=== PATIENT | male | born 2005 | race Hispanic/Latino ===

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

== ENCOUNTER 2024-09-18 12:03 | Emergency (ER) | payer BC ==
[2024-09-18 13:43] LABS: Urine Bilirubin NEGATIVE (Negative); Urine Blood Negative (Negative); Urine Clarity Clear (Clear); Urine Color Colorless (Yellow); Urine Glucose NEGATIVE (Negative); Urine Ketones NEGATIVE (Negative); Urine Microscopic Reflex YN NO UMIC; Urine Nitrite NEGATIVE (Negative); Urine Protein NEGATIVE (Negative); Urine Urobilinogen Normal (Normal)
[2024-09-18 13:49] LABS: Absolute Eosinophils 0.4 K/uL (0-0.5); Absolute Lymphocytes (CBC) 2.2 K/uL (0.7-4.9); Absolute Monocytes 0.6 K/uL (0.1-1.3); Absolute Neutrophil 4.3 K/uL (1.8-8.0); Basophils % 0.3 % (0-1.3); Hematocrit 47.1 % (39.6-49.0); Hemoglobin 15.7 g/dL (13.6-17.9); Lymphocytes % 29.4 % (15.3-44.8); MCH 27.1 pg (27.0-35.0); MCHC 33.4 g/dL (32.0-36.0); MCV 80.9 fL (80-100); MPV 8.2 fL (7.6-11.3); Monocytes % 8.1 % (3.3-12.3); Neutrophils % 57.2 % (41.7-73.7); Nucleated Red Blood Cells % 0.1 % (0-0); Platelets 302 thou/uL (152-406); RBC Red Blood Cell Count 5.82 M/uL (4.33-5.43); Red Cell Distribution Width 13.3 % (12.1-15.2)
[2024-09-18 13:59] LABS: Anion Gap 7.1 mEq/L (5.0-15.0); Bilirubin Total 0.5 mg/dL (0.2-1.0); Potassium 4.1 mEq/L (3.5-5.1)
--- NOTE | 2024-09-18 14:50 | RAD REPORT ---
EXAMINATION: CT Abdomen Pelvis W Contrast CLINICAL INDICATION: Male, 19 years old. ABD PAIN TECHNIQUE: CT abdomen and pelvis was performed, after the administration of IV contrast, [facility]. Axial, sagittal and coronal reconstructions were obtained. One or more of the following dose reduction techniques were used: Automated exposure control, adjustment of the mA and k V according to patient size, and iterative reconstruction. Unless otherwise specified, incidental findings do not require dedicated imaging follow-up. COMPARISON: No prior exam. FINDINGS: Motion artifact at the level of the central abdomen somewhat limits evaluation. LOWER CHEST: The visualized lung bases are clear. LIVER: Normal in size and contour. No focal lesion. BILIARY SYSTEM: No suspicious abnormalities. SPLEEN: Normal size. No focal lesion. PANCREAS: No mass, ductal dilation, or valdemar-pancreatic fluid. ADRENALS: Normal; no mass. KIDNEYS: Normal size and contour. No hydronephrosis. URINARY BLADDER: Unremarkable. GASTROINTESTINAL TRACT: No evidence of free air, significant intra-abdominal free fluid, bowel obstru ction or abscess. APPENDIX: Appendix not visualized, but no inflammatory changes in region of appendix. LYMPH NODES: No lymphadenopathy. MUSCULOSKELETAL: No acute or suspicious osseous abnormality. ADDITIONAL FINDINGS: None. IMPRESSION: No acute or concerning abnormalities seen in the abdomen or pelvis.
[2024-09-18] MEDS ORDERED: KETOROLAC 30 MG/ML INJ ONE (15:03)
[2024-09-18] MEDS ORDERED: NA CHLORIDE 0.9% 1,000 ML ONE (15:04)
--- NOTE | 2024-09-18 15:45 | EDPHYS ---
Physician Documentation [facility] Name: Que Chase Age: 19 yrs Sex: Male : 2005 Arrival Date: 09/18/2024 Time: 12:03 Bed 11 Private MD: ED Physician Toña Shah HPI: 09/18 15:41 This 19 yrs old Male presents to ER via Ambulatory with complaints of sd2 Abdominal Pain. 15:41 19 yo M presents with CC of RLQ abdominal pain for the past 3 days. Denies associated sd2 fever, n/v/d or urinary symptoms. Reports thinking it might have been a muscle strain but denies any significant injury or trauma he can recall. . Historical: - Allergies: 12:28 Omnicef; db - Home Meds: 15:12 None [Active]; tl4 - PMHx: 12:28 None; db - PSHx: 12:28 None; db - Immunization history:: Adult Immunizations unknown. - Infectious Disease History:: Denies. - Social history:: Smoking status: Patient denies any tobacco usage or history of. ROS: 15:41 Constitutional: Negative for fever, chills, and weight loss, Eyes: Negative for injury, sd2 pain, redness, and discharge, Cardiovascular: Negative for chest pain, palpitations, and edema, Respiratory: Negative for shortness of breath, cough, wheezing. 15:41 Back: Negative for injury and pain, : Negative for dysuria, frequency or hematuria. MS/Extremity: Negative for injury and deformity, Skin: Negative for injury, rash, and discoloration, Neuro: Negative for headache, numbness and tingling. 15:41 Abdomen/GI: Positive for abdominal pain, Negative for nausea, vomiting, and diarrhea, constipation, Exam: 15:41 Constitutional: This is a well developed, well nourished patient who is awake, alert, sd2 and in no acute distress. Head/Face: Normocephalic, atraumatic. Eyes: EOMI, normal conjunctiva bilaterally Chest/axilla: Normal chest wall appearance and motion. Nontender with no deformity. Cardiovascular: Regular rate and rhythm with a normal S1 and S2. No gallops, murmurs, or rubs. 2+ distal pulses. Respiratory: Lungs have equal breath sounds bilaterally, clear to auscultation and percussion. No rales, rhonchi or wheezes noted. No increased work of breathing, no retractions or nasal flaring. Abdomen/GI: Soft, non-tender, with normal bowel sounds. No guarding or rebound. No evidence of tenderness throughout. No tenderness to deep palpation in all 4 quadrants. Skin: Warm, dry with normal turgor. Normal color with no rashes, no lesions, and no evidence of cellulitis. MS/ Extremity: Pulses equal, no cyanosis. Neurovascular intact. Full, normal range of motion. Psych: Awake, alert, with orientation to person, place and time. Behavior, mood, and affect are within normal limits. Vital Signs: 12:26 BP 138 / 89; Pulse 71; Resp 18; Temp 98.6; Pulse Ox 99% ; Weight 117.93 kg; Height 6 db ft. 0 in. ; Pain 1/10; 15:12 BP 116 / 76; Pulse 69; Resp 16; Pulse Ox 100% on R/A; Pain 1/10; tl4 12:26 Body Mass Index 35.26 (117.93 kg, 182.88 cm) db 12:26 Pain Scale: Adult db 15:12 Pain Scale: Adult tl4 MDM: 12:31 Medical Screening Exam initiated sd2 15:41 Differential Diagnosis appendicitis, MSK, mesenteric adenitis, gastritis, UTI, sd2 diverticulitis among others. Data reviewed: vital signs, nurses notes, lab test result(s), radiologic studies, CT scan. I considered the following discharge prescriptions or medication management in the emergency department Medications were administered in the Emergency Department. See MAR. Historians other than the Patient: Parent: mother at . Counseling: I had a detailed discussion with the patient and/or guardian regarding the historical points, exam findings, and any diagnostic results supporting the discharge/admit diagnosis, lab results, radiology results, the need for outpatient follow up, to return to the emergency department if symptoms worsen or persist or if there are any questions or concerns that arise at home. ED course: Labs and CT reviewed with no acute findings. Pt with no further pain after Toradol and had benign abdominal exam. Pt and mother advised of results and continued supportive care for symptoms as well as need for outpatient follow up. Verbalizes understanding of dc plan and strict return precautions. . 09/18 12:44 Order name: CBC with Diff; Complete Time: 14:05 sd2 09/18 12:44 Order name: CMP; Complete Time: 14:05 sd2 09/18 12:44 Order name: Lipase; Complete Time: 14:05 sd2 09/18 12:44 Order name: Urinalysis w/ reflexes; Complete Time: 14:05 sd2 09/18 13:21 Order name: CT Abd/Pelvis - IV Contrast Only; Complete Time: 14:50 sd2 Administered Medications: 15:14 Drug: Ketorolac IVP 15 mg IVP once Route: IVP; Site: left antecubital; tl4 15:56 Follow up: Response: No adverse reaction; Pain is decreased tl4 15:15 Drug: NS 0.9% IV 1000 ml IV at 1000 ml once; to be given as a bolus over 60 minutes tl4 Route: IV; Rate: 1000 ml; Site: left antecubital; Delivery: Primary tubing; 15:56 Follow up: Response: No adverse reaction; IV Status: Completed infusion; IV Intake: tl4 1000ml Disposition Summary: 09/18/24 15:45 Discharge Ordered Problem: new sd2 Symptoms: have improved sd2 Condition: Stable sd2 Diagnosis - Right lower quadrant pain sd2 Followup: sd2 - With: Private Physician - When: 2 - 3 days - Reason: Recheck today's complaints, Continuance of care, Re-evaluation by your physician Discharge Instructions: - Discharge Summary Sheet sd2 - Abdominal Pain, Adult sd2 Forms: - Medication Reconciliation Form sd2 - Antibiotic Education sd2 - Prescription Opioid Use sd2 - Patient Portal Instructions sd2 - Leadership Thank You Letter sd2 Signatures: Dispatcher [employer] EDMS Toña Shah MD MD sd2 Cristina Andino RN RN db Aldo Escobar RN RN tl4 Corrections: (The following items were deleted from the chart) 12:45 12:45 CBC+H.LAB.BRZ ordered. EDMS EDMS 12:45 12:45 COMPREHENSIVE METABOLIC PANEL+C.LAB.BRZ ordered. EDMS EDMS 12:45 12:45 LIPASE+C.LAB.BRZ ordered. EDMS EDMS 12:45 12:45 Urinalysis+U.LAB.BRZ ordered. EDMS EDMS
--- NOTE | 2024-09-18 15:45 | ER ---
Nurse's Notes [facility] Name: Que Chase Age: 19 yrs Sex: Male : 2005 Arrival Date: 09/18/2024 Time: 12:03 Bed 11 Private MD: Diagnosis: Right lower quadrant pain Presentation: 09/18 12:26 Chief complaint: Patient states: RIGHT LOWER ABD PAIN X 3 DAYS. STATES WHEN SNEEZED HAS db "SHARP" PAIN. DENIES N/V. ABLE TO EAT NORMAL. Coronavirus screen: Client denies travel out of the [place] in the last 14 days. At this time, the client does not indicate any symptoms associated with coronavirus-19. Ebola Screen: Patient negative for fever greater than or equal to 101.5 degrees Fahrenheit, and additional compatible Ebola Virus Disease symptoms Patient denies exposure to infectious person. Patient denies travel to an Ebola-affected area in the 21 days before illness onset. No symptoms or risks identified at this time. Initial Sepsis Screen: Does the patient meet any 2 criteria? No. Patient's initial sepsis screen is negative. Does the patient have a suspected source of infection? No. Patient's initial sepsis screen is negative. Risk Assessment: Do you want to hurt yourself or someone else? Patient reports no desire to harm self or others. Onset of symptoms was September 15, 2024. 12:26 Method Of Arrival: Ambulatory db 12:26 Acuity: SEAN 3 db Triage Assessment: 12:28 General: Appears in no apparent distress. comfortable, Behavior is calm, cooperative, db appropriate for age. Pain: Complains of pain in abdomen. Neuro: Level of Consciousness is awake, alert, obeys commands, Oriented to person, place, time, situation. Respiratory: Airway is patent Respiratory effort is even, unlabored, Respiratory pattern is regular, symmetrical. GI: Abdomen is flat, non-distended, Reports lower abdominal pain. Historical: - Allergies: 12:28 Omnicef; db - Home Meds: 15:12 None [Active]; tl4 - PMHx: 12:28 None; db - PSHx: 12:28 None; db - Immunization history:: Adult Immunizations unknown. - Infectious Disease History:: Denies. - Social history:: Smoking status: Patient denies any tobacco usage or history of. Screenin:13 [facility] ED Fall Risk Assessment (Adult) History of falling in the last 3 months, tl4 including since admission No falls in past 3 months (0 pts) Confusion or Disorientation No (0 pts) Intoxicated or Sedated No (0 pts) Impaired Gait No (0 pts) Mobility Assist Device Used No (0 pt) Altered Elimination No (0 pt) Score/Fall Risk Level 0 - 2 = Low Risk Oriented to surroundings, Maintained a safe environment, Educated pt \\T\\ family on fall prevention, incl call for assistance when getting out of bed, Assessed \\T\\ reinforced patient's understanding of fall precautions. Abuse screen: Denies threats or abuse. Denies injuries from another. Nutritional screening: No deficits noted. Tuberculosis screening: No symptoms or risk factors identified. Assessment: 15:11 General: Appears in no apparent distress. Behavior is calm, cooperative. Pain: tl4 Complains of pain in abdomen. Neuro: Level of Consciousness is awake, alert, obeys commands, Oriented to person, place, time, situation, Moves all extremities. Full function Gait is steady, Speech is normal, Facial symmetry appears normal, Denies weakness blurred vision dizziness. Cardiovascular: Denies chest pain, diaphoresis, fatigue, lightheadedness, nausea, palpitations, shortness of breath, syncope, vomiting, Capillary refill < 3 seconds Patient's skin is warm and dry. Respiratory: Airway is patent Respiratory effort is even, unlabored, Respiratory pattern is regular, symmetrical, Breath sounds are clear bilaterally. Denies cough, shortness of breath. GI: Bowel sounds present X 4 quads. Abd is soft X 4 quads Abdomen is tender to palpation in right upper quadrant and right lower quadrant Patient currently denies diarrhea, nausea, vomiting. : No signs and/or symptoms were reported regarding the genitourinary system. EENT: No signs and/or symptoms were reported regarding the EENT system. Derm: No signs and/or symptoms reported regarding the dermatologic system. Musculoskeletal: No signs and/or symptoms reported regarding the musculoskeletal system. Vital Signs: 12:26 BP 138 / 89; Pulse 71; Resp 18; Temp 98.6; Pulse Ox 99% ; Weight 117.93 kg; Height 6 db ft. 0 in. ; Pain 1/10; 15:12 BP 116 / 76; Pulse 69; Resp 16; Pulse Ox 100% on R/A; Pain 1/10; tl4 12:26 Body Mass Index 35.26 (117.93 kg, 182.88 cm) db 12:26 Pain Scale: Adult db 15:12 Pain Scale: Adult tl4 ED Course: 12:06 Patient arrived in ED. mr 12:28 Triage completed. db 12:28 Arm band placed on right wrist. Patient placed in waiting room. db 12:31 Toña Shah MD is Attending Physician. sd2 13:34 Urinalysis w/ reflexes Sent. bc6 13:34 Lipase Sent. bc6 13:34 CMP Sent. bc6 13:34 CBC with Diff Sent. bc6 13:34 Initial lab(s) drawn, by me, sent to lab. Inserted saline lock: 20 gauge in left bc6 antecubital area, using aseptic technique. Blood collected. Flushed with 10 mL NS. 14:06 CT Abd/Pelvis - IV Contrast Only In Process Unspecified. EDMS 14:08 CT completed. Patient tolerated procedure well. nj 14:59 Aldo Escobar, RN is Primary Nurse. tl4 15:13 Patient has correct armband on for positive identification. Placed in gown. Bed in low tl4 position. Call light in reach. Side rails up X 1. Adult w/ patient. Provided Education on: ed process, call bunch. Client placed on continuous cardiac and pulse oximetry monitoring. NIBP monitoring applied. Door closed. Noise minimized. Lights dimmed. Moved to private room. Warm blanket given. 15:14 No provider procedures requiring assistance completed. tl4 15:57 IV discontinued, intact, bleeding controlled, No redness/swelling at site. Pressure tl4 dressing applied. Administered Medications: 15:14 Drug: Ketorolac IVP 15 mg IVP once Route: IVP; Site: left antecubital; tl4 15:56 Follow up: Response: No adverse reaction; Pain is decreased tl4 15:15 Drug: NS 0.9% IV 1000 ml IV at 1000 ml once; to be given as a bolus over 60 minutes tl4 Route: IV; Rate: 1000 ml; Site: left antecubital; Delivery: Primary tubing; 15:56 Follow up: Response: No adverse reaction; IV Status: Completed infusion; IV Intake: tl4 1000ml Medication: 15:13 VIS not applicable for this client. tl4 Intake: 15:56 IV: 1000ml; Total: 1000ml. tl4 Outcome: 15:45 Discharge ordered by . sd2 15:57 Discharged to home ambulatory, with family, tl4 15:57 Condition: stable 15:57 Discharge instructions given to patient, Instructed on discharge instructions, follow up and referral plans. Demonstrated understanding of instructions, follow-up care, 15:57 Patient left the ED. tl4 Signatures: Dispatcher [employer] EDOH Vandana Murphy, Reg Reg mr Que Caban Stephanie, MD MD sd2 Cristina Andino, RN RN db Gabby Christine [facility] Aldo Escobar RN RN tl4 Corrections: (The following items were deleted from the chart) 12:28 12:26 Onset of symptoms was September 18, 2024 db db
[2024-09-18 20:52] VITALS: TEMP 98.6
[2024-09-18 20:58] VITALS: BP 116/76; O2SAT 100
== END 2024-09-18 15:57 | disposition home or self-care (01) ==
LOC: ER 12:03
DX: R10.31 Right lower quadrant pain (principal)
CPT/HCPCS: 96361; 85025; 36415; 81003; 83690; 80053; 74177; 96374; 99284; Q9967; J7030